=== PATIENT | female | born 1980 | race African-American/Black ===

== ENCOUNTER 2018-03-23 08:25 | Emergency (ER) | payer SELFPAY ==
[2018-03-23 08:37] VITALS: BP 138/82
[2018-03-23 09:37] LABS: APPEARANCE,URINE SLIGHTLY-CLOUDY; BILIRUBIN,URINE NEGATIVE (NEGATIVE); COLOR,URINE YELLOW; GLUCOSE, URINE NEGATIVE (NEGATIVE); KETONES,URINE NEGATIVE (NEGATIVE); LEUKOCYTE ESTERASE,URINE NEGATIVE (NEGATIVE); NITRITE,URINE NEGATIVE (NEGATIVE); PROTEIN,URINE NEGATIVE (NEGATIVE); URINE SPECIFIC GRAVITY 1.011; UROBILINOGEN,URINE NEGATIVE mg/dL (<2.0)
[2018-03-23] MEDS ORDERED: NORMAL SALINE 500 ML IV ONE (09:44)
[2018-03-23 09:52] LABS: ABSOLUTE EOSINOPHILS # (AUTO) 0.2 10^3/uL (0.0-0.6); ABSOLUTE LYMPHOCYTES (AUTO) 2.1 10^3/uL (0.5-4.7); ABSOLUTE MONOCYTES (AUTO) 0.9 10^3/uL (0.1-1.4); ABSOLUTE NEUT (AUTO) 2.8 10^3/uL (1.7-8.2); BASOPHILS % (AUTO) 0.7 % (0-2); EOSINOPHILS % (AUTO) 3.9 % (0-6); HEMOGLOBIN 14.6 g/dL (12.0-15.5); LYMPHOCYTES % (AUTO) 34.2 % (13-45); MEAN CORPUSCULAR HEMOGLOBIN 28.7 pg (27.0-33.4); MEAN CORPUSCULAR HGB CONC 33.3 g/dL (32.0-36.0); MEAN CORPUSCULAR VOLUME 86 fl (80-97); MONOCYTES % (AUTO) 14.7 % (3-13); PLATELET COUNT 255 10^3/uL (150-450); RED CELL DISTRIBUTION WIDTH 15.2 % (11.5-14.0); SEGMENTED NEUTROPHILS % (AUTO) 46.5 % (42-78); TOTAL CELLS COUNTED % (AUTO) 100 %
[2018-03-23] MEDS ORDERED: FAMOTIDINE INJ/PF 20 MG/2 ML SDV IV ONE (09:59)
[2018-03-23 10:09] LABS: ALANINE AMINOTRANSFERASE 10 U/L (9-52); ALBUMIN 4.7 g/dL (3.5-5.0); ALKALINE PHOSPHATASE 67 U/L (38-126); ANION GAP 9 (5-19); ASPARTATE AMINO TRANSFERASE 22 U/L (14-36); BILIRUBIN,DIRECT 0.2 mg/dL (0.0-0.4); BILIRUBIN,TOTAL 0.4 mg/dL (0.2-1.3); BLOOD UREA NITROGEN 8 mg/dL (7-20); CALCIUM 9.9 mg/dL (8.4-10.2); CARBON DIOXIDE 26 mmol/L (22-30); CHLORIDE 106 mmol/L (98-107); GLUCOSE 82 mg/dL (75-110); LIPASE 74.8 U/L (23-300); POTASSIUM 4.3 mmol/L (3.6-5.0); SODIUM 141.2 mmol/L (137-145); TOTAL PROTEIN 7.8 g/dL (6.3-8.2)
--- NOTE | 2018-03-23 10:09 | ER Document Report ---
ED General - General Chief Complaint: Upper Abdominal Pain Stated Complaint: ABDOMINAL PAIN Time Seen by Provider: 03/23/18 09:31 TRAVEL OUTSIDE OF THE [place] IN LAST 30 DAYS: No - HPI Patient complains to provider of: Left upper quadrant abdominal pain Notes: Patient coming in for evaluation of left upper quadrant abdominal pain ongoing for months. Patient's describes as bloating sometimes associated with food. Patient states sometimes it does radiate into her chest. Patient denies any fevers chills nausea vomiting denies any trauma. Patient takes no medications drinks occasionally smokes daily. Patient states not due to not having intercourse. Otherwise is resting comfortably. Denies any weight gain weight loss. Patient looks nontoxic denies any abdominal surgeries denies any procedure being performed such as colonoscopy or EGD - Related Data Allergies/Adverse Reactions: No Known Allergies Allergy (Verified 03/23/18 08:26) Past Medical History - Social History Smoking Status: Current Some Day Smoker Chew tobacco use (# tins/day): No Frequency of alcohol use: None Drug Abuse: None Family History: Reviewed & Not Pertinent Patient has suicidal ideation: No Patient has homicidal ideation: No Renal/ Medical History: Denies: Hx Peritoneal Dialysis Review of Systems - Review of Systems Constitutional: No symptoms reported EENT: No symptoms reported Cardiovascular: No symptoms reported Respiratory: No symptoms reported Gastrointestinal: Abdominal pain Genitourinary: No symptoms reported Female Genitourinary: No symptoms reported Musculoskeletal: No symptoms reported Skin: No symptoms reported Hematologic/Lymphatic: No symptoms reported Neurological/Psychological: No symptoms reported Physical Exam - Vital signs Vitals: Temp Pulse Resp BP Pulse Ox 98.2 F 84 18 138/82 H 100 03/23/18 08:30 03/23/18 08:30 03/23/18 08:30 03/23/18 08:30 03/23/18 08:30 Interpretation: Normal - General General appearance: Appears well, Alert - HEENT Head: Normocephalic, Atraumatic Eyes: Normal Pupils: PERRL - Respiratory Respiratory status: No respiratory distress Chest status: Nontender Breath sounds: Normal Chest palpation: Normal - Cardiovascular Rhythm: Regular Heart sounds: Normal auscultation Murmur: No - Abdominal Inspection: Normal Distension: No distension Bowel sounds: Normal Tenderness: Nontender Organomegaly: No organomegaly - Back Back: Normal, Nontender - Extremities General upper extremity: Normal inspection, Nontender, Normal color, Normal ROM, Normal temperature General lower extremity: Normal inspection, Nontender, Normal color, Normal ROM, Normal temperature, Normal weight bearing. No: Medina's sign - Neurological Neuro grossly intact: Yes Cognition: Normal Orientation: AAOx4 Alfred Coma Scale Eye Opening: Spontaneous Alfred Coma Scale Verbal: Oriented Alfred Coma Scale Motor: Obeys Commands Ezequiel Coma Scale Total: 15 Speech: Normal Motor strength normal: LUE, RUE, LLE, RLE Sensory: Normal - Psychological Associated symptoms: Normal affect, Normal mood - Skin Skin Temperature: Warm Skin Moisture: Dry Skin Color: Normal Course - Re-evaluation Re-evalutation: 03/23/18 17:54 The patient presents with abdominal pain without signs of peritonitis or other life-threatening or serious etiology. The patient appears stable for discharge and has been instructed to return immediately if the symptoms worsen in any way, or in 8-12hr if not improved for re-evaluation. The patient has been instructed to return if the symptoms worsen or change in any way. - Vital Signs Vital signs: Temp Pulse Resp BP Pulse Ox 98.2 F 84 18 138/82 H 100 03/23/18 08:30 03/23/18 08:30 03/23/18 08:30 03/23/18 08:30 03/23/18 08:30 - Laboratory Result Diagrams: 03/23/18 09:30 03/23/18 09:30 Laboratory results interpreted by me: 03/23/18 03/23/18 09:20 09:30 RDW 15.2 H Monocytes % 14.7 H Urine Blood SMALL H Discharge - Discharge Clinical Impression: Upper abdominal pain Condition: Good Disposition: HOME, SELF-CARE Instructions: Abdominal Pain ([facility]), Gastritis ([facility]), Prilosec (Acid Pump Inhibitor) ([facility]) Additional Instructions: Your laboratory evaluation today shows no signs of hepatitis pancreatitis no signs of any gallbladder disease bedside ultrasound shows a normal kidney on the left side along with a normal spleen. EKG does not show any acute abnormalities. I do believe you have possible underlying gastritis or irritable bowel syndrome. I would recommend starting you on Bentyl for pain and omeprazole to help decrease acid production. Please eat a low-fat diet would recommend following up with your primary care physician is that you will need to be further evaluated possibly by a GI specialist. Return to ER if you develop a fever or worsening of the symptoms. Prescriptions: Dicyclomine HCl [Bentyl 20 mg Tablet] 20 mg PO QID #30 tablet Omeprazole 20 mg PO DAILY #30 capsule.dr Forms: Smoking Cessation Education, Return to Work
[2018-03-23] MEDS ORDERED: DICYCLOMINE HCL 20 MG TABLET PO ONE (11:22)
--- NOTE | 2018-03-23 21:32 | EKG REPORT ---
SEVERITY:- ABNORMAL ECG - SINUS RHYTHM ABNORMAL Q SUGGESTS ANTEROSEPTAL INFARCT : Confirmed by: Minerva Fernandez 23-Mar-2018 21:32:02
== END 2018-03-23 11:55 | disposition home or self-care (01) ==
LOC: ER 08:25
DX: R10.12 Left upper quadrant pain (principal); R07.9 Chest pain, unspecified; F17.200 Nicotine dependence, unspecified, uncomplicated
CPT/HCPCS: 93005; 99284; 96361; 96374; 36415; 83690; 85025; 81025; 80053; 81001; 93010; J3490; J7040; S0028